=== PATIENT | male | born 1980 | race Caucasian/White ===

== ENCOUNTER 2018-10-08 10:45 | Emergency (ER) | payer SELFPAY ==
[~2018-10-08] VITALS: Ht 167.6 cm; Wt 68.0 kg
[2018-10-08 10:50] VITALS: BP 126/90
--- NOTE | 2018-10-08 11:00 | NUR ---
FIRST CONTACT WITH PT. PT STATES "I NOTICED SWELLING IN MY LEFT ARM IN THE LAST 24 HOURS. 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 I GET POKED BY NAILS ALL THE TIME WITH WORK." UNK TETANUS VACCINE PT'S AOX4. RESPS EVEN AND UNLABORED. AWAITING ORDERES.
--- NOTE | 2018-10-08 11:42 | NUR ---
PT IN XRAY NOW.
[2018-10-08 11:47] LABS: MEAN CORPUSCULAR HEMOGLOBIN 32.4 pg (27.5-34.5); MEAN CORPUSCULAR HGB CONC 33.5 g/dL (33.2-36.2); MEAN CORPUSCULAR VOLUME 96.8 fL (81-97); MEAN PLATELET VOLUME 8.2 fL (7.4-10.4); PLATELET COUNT 305 x10^3/uL (130-400); RED CELL DISTRIBUTION WIDTH 12.8 % (9.4-14.8)
--- NOTE | 2018-10-08 11:50 | NUR ---
PT GIVEN TDAP AT THIS TIME. PT TOLERATED WELL.
[2018-10-08 11:54] LABS: ALBUMIN 3.6 g/dL (3.4-5.0); ANION GAP 6 mmol/L (5-15); CALCIUM 8.5 mg/dL (8.5-10.1); CHLORIDE 108 mmol/L (98-107); CREATININE 0.77 mg/dL (0.7-1.3)
[2018-10-08] MEDS ORDERED: DIPH,PERTUSS(ACELL),TET VAC/PF 0.5 ML IM-VACC ONE (12:00)
[2018-10-08] MEDS ORDERED: CEFTRIAXONE 1,000 MG ONE (12:10)
--- NOTE | 2018-10-08 12:20 | NUR ---
Patient given discharge instructions and they have confirmed that they understand the instructions. Patient ambulatory with steady gait.
--- NOTE | 2018-10-08 12:20 | NUR ---
PT MEDICATED PER EMAR. PT TOLERATED WELL.
[2018-10-08 12:28] LABS: MD YES
[2018-10-08 12:30] LABS: <PLATELET ESTIMATE> ADEQUATE; <PLT MORPHOLOGY> NORMAL PLT MORPH; <RBC MORPHOLOGY> NORMAL; BAND#(MANUAL) 0.91 x10^3/uL; BANDS%(MANUAL) 5 % (0-7); EOS#(MANUAL) 0.18 x10^3/uL (0.0-0.4); EOS% (MANUAL) 1 % (1-7); LYMPH#(MANUAL) 1.81 x10^3/uL (1-3.4); LYMPHS% (MANUAL) 10 % (22-44); MONOS#(MANUAL) 1.45 x10^3/uL (0.3-2.7); MONOS% (MANUAL) 8 % (2-9); SEG#(MANUAL) 13.76 x10^3/uL (1.8-6.8); SEGS% (MANUAL) 76 % (42-75)
[2018-10-08] MEDS ORDERED: CEFTRIAXONE 1,000 MG IM ONE (12:30)
== END 2018-10-08 12:21 | disposition home or self-care (01) ==
LOC: ED 12:16
DX: L03.114 Cellulitis of left upper limb (principal); F17.200 Nicotine dependence, unspecified, uncomplicated
CPT/HCPCS: 36415; 73090; 80048; 82040; 85025; 90471; 90715; 96372; 99284; J0696

== ENCOUNTER 2019-03-10 11:08 | Outpatient (CLI) | payer SELFPAY | END 2019-03-10 23:59 | disposition home or self-care (01) | LOC: RAD 11:08 | PROVIDERS: ATTEND Physician Assistant | DX: N50.3 Cyst of epididymis (principal); N45.2 Orchitis | CPT/HCPCS: 76870 ==

== ENCOUNTER 2020-02-29 22:43 | Emergency (ER) | payer SELFPAY ==
[~2020-02-29] VITALS: Ht 167.6 cm; Wt 71.0 kg
[2020-02-29 22:49] VITALS: BP 143/94
--- NOTE | 2020-02-29 23:17 | NUR ---
pt to room from lobby
--- NOTE | 2020-02-29 23:40 | NUR ---
PT WITH C/O TESTICLE PAIN AWAITING URINE SAMPLE
[2020-03-01] MEDS ORDERED: OXYcodone/APAP 5/325MG TABLET PO ONE
[2020-03-01] MEDS ORDERED: OXYcodone/APAP 5/325MG TABLET ONE (00:37)
--- NOTE | 2020-03-01 00:40 | NUR ---
MEDICATED FOR PAIN
[2020-03-01 02:03] LABS: MICROSCOPIC AUTO
[2020-03-01] MEDS ORDERED: CEFTRIAXONE 250 MG ONE (02:24)
[2020-03-01] MEDS ORDERED: DOXYCYCLINE 100MG TABLET ONE (02:24)
[2020-03-01] MEDS ORDERED: DOXYCYCLINE 100MG TABLET PO ONE (02:30)
[2020-03-01] MEDS ORDERED: CEFTRIAXONE 250 MG IM ONE (02:30)
== END 2020-03-01 02:42 | disposition home or self-care (01) ==
LOC: ED 23:30
DX: N50.812 Left testicular pain (principal); N50.811 Right testicular pain; N43.3 Hydrocele, unspecified; N45.1 Epididymitis; I86.1 Scrotal varices; F12.10 Cannabis abuse, uncomplicated; F17.210 Nicotine dependence, cigarettes, uncomplicated; Z72.9 Problem related to lifestyle, unspecified
CPT/HCPCS: 76870; 81001; 87086; 87491; 87591; 96372; 99284; J0696